=== PATIENT | female | born 1945 | race Caucasian/White ===

== ENCOUNTER → 2019-11-03 | Day surgery (SDC) | payer OTHER ==
[~2019-11-03] VITALS: Ht 167.6 cm; Wt 148.3 kg
[~2019-11-03] MED LIST: AMARYL4 MG PO; BONIVA150 MG PO; CALCIUM 600 +1 EAC8 PO; CARVEDILOL12.5 MG PO; CYANOCOBAL1000 MCG/1 IM; FISH OIL 1,0001 EAC9 PO; GLUCOSAMINE HC500 MG PO; IRON325 M1 PO; LEVO-T175 MCG PO; LEVO-T200 MCG PO; LEXAPRO20 MG PO; LOSARTAN-HCTZ1 EAC1 PO; LOVASTATIN40 MG PO; METFORMIN HCL500 M3 PO; MULTI VITAMIN1 EACH PO; PROTONIX40 M1 PO; SINGULAIR 10 MG10 M1 PO; VITAMIN D3125 MC1 PO; ZYRTEC10 M2 PO
--- NOTE | ~2019-11-03 | PROC ---
[address] [address] PROCEDURE REPORT Name: BLAYNE SANCHEZ Room: [facility]#: [id number] Admission: 11/03/19 Attend Phys: Adrian Blanco DO Discharge: Date of : 47 Report #: [id number] THIS REPORT FOR: //name// cc: Gogo Alfaro Anna S. DO ~ THIS REPORT FOR: //name// For GI report, please see the Provation report in Perceptive 7 content. By: 0654Medical Records Staff ALEXA /KIAH
[2019-11-03 09:17] LABS: HEMATOCRIT 37.5 % (37.0-47.0); HEMOGLOBIN 12.8 gm/dL (12.0-15.0); MCH 32.2 pg (26.0-34.0); MCHC 34.2 g/dL (28.0-37.0); MPV 8.9 fl. (7.2-11.1); RBC 3.99 mil/uL (4.20-5.00); RDW-CV 12.4 % (10.5-14.5); WBC 5.6 thou/uL (4.0-11.0)
[2019-11-03 09:24] LABS: CALCIUM 9.3 mg/dL (8.5-10.1); CREATININE 1.4 mg/dL (0.6-1.3); POTASSIUM 4.3 mmol/L (3.5-5.1)
[2019-11-03 11:44] LABS: ALBUMIN 3.3 g/dL (3.4-5.0); DIRECT BILIRUBIN 0.1 mg/dL (<0.1-0.3); TOTAL BILIRUBIN 0.6 mg/dL (<0.1-1.0); TOTAL PROTEIN 6.9 g/dL (6.4-8.2)
--- NOTE | 2019-11-04 13:08 | PATH ---
[facility] [address] [place] [address] PATHOLOGY RPT PROCEDURE Name: IFEOMA ROUSE Room: [facility].[place].#: [id number] Admission: 11/03/19 Date of : 47 Discharge: Report #: [id number] Path Case #: [id number] [facility] Accession Number: [id number] . 01 Material submitted: . PART A: colon - RANDOM COLON BIOPSY FOR CHRONIC DIARRHEA PART B: colon - POLYP PROXIMAL ASCENDING COLON. Modifiers: proximal, ascending . 01 Clinical history: . Change in bowel habits; fit . 02 Diagnosis: A. Random colon biopsy: - Focal suggestion of hyperplastic polyp in otherwise normal colonic mucosa. . B. Polyp proximal ascending colon: - Tubular adenoma, negative for high-grade dysplasia. (BHAVIN:piero; 11/04/2019) S 11/04/2019 1107 Local . 02 Electronically signed: . Kyler Garcia MD, Pathologist NPI- [id number] . 01 Gross description: . A. The specimen is received in formalin, labeled "Ifeoma Rouse, random colon biopsy chronic diarrhea". Received are seven segments of pale lockwood soft tissue ranging in size from 0.3 to 0.4 cm in maximum dimensions. The specimen is submitted entirely in cassette A1. . B. The specimen is received in formalin, labeled "Ifeoma Rouse, polyp proximal ascending colon". Received are two segments of pale lockwood soft tissue ranging in size from 0.3 to 0.8 cm in maximum dimensions. The surgical margin of the larger segment is inked and the segment is bisected. The specimen is submitted entirely in cassette B1. (CAA; 11/03/2019) QAC/QAC 11/03/2019 1949 Local . 02 Pathologist provided ICD-10: D12.2, R19.4 . 02 CPT . 630547, 187598 Specimen Comment: A courtesy copy of this report has been sent to [phone] Specimen Comment: Report sent to Performed at: [address] [place] [address] PATHOLOGY RPT PROCEDURE Name: IFEOMA ROUSE Room: [facility]#: [id number] Admission: 11/03/19 Date of : 47 Discharge: Report #: [id number] Path Case #: [id number] [place] [address] [facility] [address], [place], [place] [id number] MD Terence Lee MD Phone: [phone] Performed at: 02 [facility] [address], [place], [place] [id number] MD Kyler Garcia MD Phone: [phone]
--- NOTE | 2019-11-25 11:47 | EKG ---
[place] [address] ELECTROCARDIOGRAM REPORT Name: BLAYNE SANCHEZ Room: [facility]#: [id number] Admission: 11/03/19 Attend Phys: dArian Blanco, Discharge: Date of : 47 Date of Service: 11/03/19914 Report #: [id number] THIS REPORT FOR: //name// [facility] Test Date: 2019-11-03 Test Time: 09:15:10 Pat Name: BLAYNE SANCHEZ Department: Room: Gender: Tray Packer: : 1945 Requested By: Adrian Blanco Order Number: [id number] Óscar MD: Oneil Garcia Measurements Intervals [place] Rate: 71 P: 33 MT: 178 QRS: -68 QRSD: 140 T: 15 QT: 421 QTc: 458 Interpretive Statements Sinus rhythm Right bundle branch block Anterior infarct, old No previous ECG available for comparison Electronically Signed On 11-03-2019 14:13:26 CDT by Oneil Garcia [email or web address] <ELECTRONICALLY SIGNED> By: Oneil Garcia MD, [facility] 11/03/19 1413 4 4 Oneil Garcia MD, FACC /EPI
== END | disposition home or self-care (01) ==
LOC: M.SUR 07:33
PROVIDERS: Internal Medicine Gastroenterology
DX: R19.7 Diarrhea, unspecified (principal); R10.32 Left lower quadrant pain; D12.2 Benign neoplasm of ascending colon; K57.30 Diverticulosis of large intestine without perforation or abscess without bleeding; I10 Essential (primary) hypertension; E78.5 Hyperlipidemia, unspecified; E03.9 Hypothyroidism, unspecified; E11.9 Type 2 diabetes mellitus without complications; K64.4 Residual hemorrhoidal skin tags; K21.9 Gastro-esophageal reflux disease without esophagitis; M19.90 Unspecified osteoarthritis, unspecified site; Z79.899 Other long term (current) drug therapy; Z98.890 Other specified postprocedural states